=== PATIENT | female | born 2005 | race Caucasian/White ===

== ENCOUNTER 2023-11-29 19:46 | Emergency (ER) | payer OTHER ==
[~2023-11-29] VITALS: Ht 149.9 cm; Wt 62.6 kg
[2023-11-29 20:27] VITALS: BP 132/85; PULSE 121; RESP 16; TEMP 98.3; O2SAT 98
[2023-11-29 21:28] LABS: APPEARANCE,URINE SLIGHTLY CLOUDY (CLEAR); BILIRUBIN,URINE NEGATIVE (NEGATIVE); BLOOD, URINE NEGATIVE (NEGATIVE); COLOR,URINE YELLOW (YELLOW); LEUKOCYTE ESTERASE ,URINE 1+ (NEGATIVE); NITRITE, URINE NEGATIVE (NEGATIVE); PROTEIN,URINE NEGATIVE (NEGATIVE); UGLUCOSE NEGATIVE (NEGATIVE); UROBILINOGEN,URINE 0.2 EU/dL (0.2 - 1)
[2023-11-29 21:34] LABS: BACTERIA,URINE 2+ /HPF (None Seen); MUCUS,URINE None Seen /LPF (None Seen); RBC,URINE 0 /HPF (0-5); SQUAMOUS EPITHELIAL CELL,UR 0-3 (FEW) /LPF (0-3 (FEW))
[2023-11-29 21:47] LABS: FLU A ANTIGEN negative (NEGATIVE); FLU B ANTIGEN NEGATIVE (NEGATIVE)
[2023-11-29] MEDS ORDERED: NITR100C7 PO (22:16)
[2023-11-29 22:23] VITALS: BP 112/64; PULSE 114; RESP 18; TEMP 98.6; O2SAT 96
== END 2023-11-29 22:32 | disposition home or self-care (01) ==
LOC: MED 19:46
DX: O23.42 Unspecified infection of urinary tract in pregnancy, second trimester (principal); Z20.822 Contact with and (suspected) exposure to COVID-19; R50.9 Fever, unspecified; Z3A.21 21 weeks gestation of pregnancy; Z79.899 Other long term (current) drug therapy
CPT/HCPCS: 81001; 81025; 87086; 99283